=== PATIENT | female | born 1955 | race Two or more races ===

== ENCOUNTER 2019-11-15 20:09 | Emergency (ER) | payer MEDICARE, BC ==
[~2019-11-15] VITALS: Ht 157.5 cm; Wt 46.3 kg
[2019-11-15 20:15] VITALS: BP 129/72
[2019-11-15] MEDS ORDERED: LIDOCAINE 1%-EPI 1:100,000 20 ML VIAL ONE (20:27)
--- NOTE | 2019-11-15 21:12 | NUR ---
Patient discharged to home in stable condition. Written and verbal after care instructions given. Patient verbalizes understanding of instruction. Pt ambulatory with a steady gait
== END 2019-11-15 21:27 | disposition home or self-care (01) ==
LOC: ER 20:10
DX: S01.81XA Laceration without foreign body of other part of head, initial encounter (principal); E78.5 Hyperlipidemia, unspecified; Z98.890 Other specified postprocedural states; Z88.5 Allergy status to narcotic agent; W22.8XXA Striking against or struck by other objects, initial encounter; Y93.01 Activity, walking, marching and hiking; Y92.098 Other place in other non-institutional residence as the place of occurrence of the external cause; Y99.8 Other external cause status
CPT/HCPCS: 12011; 99282; J3490